=== PATIENT | male | born 1945 | race Caucasian/White ===

== ENCOUNTER 2018-10-06 20:39 | Emergency (ER) | payer SELFPAY ==
[~2018-10-06] VITALS: Wt 100.0 kg
[2018-10-06] MEDS ORDERED: SODIUM CHLORIDE 0.9% 500 ML BAG IV* STA (20:49)
[2018-10-06] MEDS ORDERED: VANCOMYCIN 1 GM (PMX) 250 ML IVPB STA (20:49)
[2018-10-06] MEDS ORDERED: SODIUM CHLORIDE 0.9% 1L BAG IV* STA (20:49)
[2018-10-06] MEDS ORDERED: CEFEPIME 2GM/50 ML (PMX) 50 ML IVPB STA (20:49)
--- NOTE | 2018-10-06 21:31 | ERD ---
ER Documentation Chief Complaint Chief Complaint Cardiac arrest HPI Patient is a 73-year-old male approximately who presents in full cardiac arrest. Please note the history and physical exam is limited as the patient is in full cardiac arrest and getting CPR at this time. The patient was found down after being on the ground for 3 days. He lives alone. He was brought in by ambulance. As soon as they tried to move him he went into cardiac arrest. He was asystole the entire transport time. He was being bagged by paramedics upon arrival. ROS All systems reviewed and are negative except as per history of present illness. PMhx/Soc Medical and Surgical Hx: Unable to obtain FmHx Unable to obtain Physical Exam Physical Exam Const: No acute distress Head: Atraumatic Eyes: Normal Conjunctiva ENT: Normal External Ears, Nose and Mouth. Neck: Full range of motion. No meningismus. Resp: Clear to auscultation bilaterally Cardio: Regular rate and rhythm, no murmurs Abd: Soft, non tender, non distended. Normal bowel sounds Skin: No petechiae or rashes Back: No midline or flank tenderness Ext: No cyanosis, or edema Neur: Awake and alert Psych: Normal Mood and Affect Results 24 hrs Current Medications Medications Dose Sig/Jenny Start Time Status Last (Trade) Ordered Route PRN Stop Time Admin Dose Reason Admin Sodium 3,000 ml BOLUS OVER 2 10/06/18 DC Chloride HOURS STAT 20:49 (NS) IV* 10/06/18 21:02 Cefepime HCl 50 ml @ ONCE STAT 10/06/18 DC 100 mls/hr IVPB 20:49 10/06/18 21:02 Vancomycin 250 ml @ ONCE STAT 10/06/18 DC HCl 125 mls/hr IVPB 20:49 10/06/18 21:02 Sodium 500 ml ONCE STAT 10/06/18 DC Chloride IV* 20:49 (NS) 10/06/18 21:02 Departure Diagnosis: Primary Impression: Cardiac arrest Condition: Critical TIKI PFEIFFER MD October 06, 2018 21:31
== END 2018-10-06 20:55 | disposition expired ==
LOC: E/R 20:39
DX: I46.9 Cardiac arrest, cause unspecified (principal); I47.2 Ventricular tachycardia
CPT/HCPCS: 31500; 92950; J7030; J7040